=== PATIENT | female | born 1930 | race Caucasian/White ===

== ENCOUNTER 2016-12-27 09:59 | Emergency (ER) | payer OTHER ==
[~2016-12-27] VITALS: Ht 165.1 cm; Wt 74.8 kg
--- NOTE | 2016-12-27 11:14 | ED GI/GU/ABDOMINAL COMPLAINT ---
History of Present Illness General Chief Complaint: Abdominal Pain/Flank Pain Stated Complaint: BLDY STOOL Source: patient Exam Limitations: no limitations Vital Signs & Intake/Output Vital Signs & Intake/Output Vital Signs Date Time Temp Pulse Resp B/P B/P Pulse O2 O2 Flow FiO2 Mean Ox Delivery Rate 12/27 1312 97.1 97 16 147/87 98 Room Air 12/27 1200 98 Room Air 12/27 1007 97.3 78 18 162/90 98 Room Air Allergies Coded Allergies: acetaminophen (From PERCOCET) (UNKNOWN 11/10/15) oxycodone (From PERCOCET) (UNKNOWN 11/10/15) propoxyphene (From DARVOCET-N) (UNKNOWN 11/10/15) Reconcile Medications Amlodipine Besylate 5 MG TABLET 1 TAB PO DAILY HIGH BLOOD PRESSURE (Reported) Atenolol 100 MG TABLET 1.5 TAB PO DAILY HIGH BLOOD PRESSURE (Reported) Atorvastatin Calcium 40 MG TABLET 1 TAB PO DAILY HIGH CHOLESTROL (Reported) Valsartan/Hydrochlorothiazide (Valsartan-Hctz 160-25 MG Tab) 160 MG-25 MG TABLET 0.5 TAB PO DAILY HIGH BLOOD PRESSURE (Reported) Warfarin Sodium (Coumadin) 2.5 MG TABLET 0.5 TAB PO Wednesday BLOOD THINNER (Reported) Warfarin Sodium (Coumadin) 2.5 MG TABLET 1 TAB PO COUMADIN Wed SAT BLOOD THINNER (Reported) Triage Note: PT STATES THAT SHE HAS BEEN ON COUMADING SINCE 2013 AFTER HER PMD THOUGHT SHE HAD A TIA, YESTERDAY HAD 7 EPISODES OF DIARHEA AND THIS AM SHE HAD SOFT BM WITH BRIGHT RED BLLOD, DENIES PAIN Triage Nurses Notes Reviewed? yes ? N Is pt currently ? No HPI: This patient is an 86-year-old female who presented to the emergency department today for evaluation of rectal bleeding. This patient is currently on Coumadin from when she had a suspected TIA in 2013. The patient reported that this week she has felt a little more, "sluggish," than normal, but other than that has felt fine. Yesterday she had approximately 5 episodes of diarrhea in the evening which was watery. She was woken from sleep last night with the urge to move her bowels. She reported that there was bright red blood in the toilet bowl. She has had 2 subsequent episodes of rectal bleeding since that time. She reported that yesterday she was having some mild lower abdominal cramping, but no symptoms today. She denied any fevers, chills, chest pain, difficulty breathing, back pain, nausea, vomiting, urinary burning, urgency, frequency, or blood in the urine. (MONSE STARK PA-C) Past History Travel History Traveled to [place] past 21 day No Medical History Any Pertinent Medical History? see below for history Neurological: TIA EENT: NONE Cardiovascular: hypertension, hyperlipidemia Respiratory: NONE Gastrointestinal: NONE Hepatic: NONE Renal: NONE Musculoskeletal: NONE Psychiatric: NONE Endocrine: NONE Blood Disorders: NONE Cancer(s): NONE GROCERY BUYER/Reproductive: NONE Surgical History Surgical History: non-contributory Psychosocial History What is your primary language Latvian Tobacco Use: Never used ETOH Use: denies use Illicit Drug Use: denies illicit drug use Family History Hx Contributory? No (MONSE STARK PA-C) Review of Systems Review of Systems Constitutional: Reports: see HPI. EENTM: Reports: no symptoms. Respiratory: Reports: no symptoms. Cardiovascular: Reports: no symptoms. GI: Reports: see HPI. Genitourinary: Reports: no symptoms. Musculoskeletal: Reports: no symptoms. Skin: Reports: no symptoms. Neurological/Psychological: Reports: no symptoms. Hematologic/Endocrine: Reports: see HPI. All Other Systems: Reviewed and Negative (MONSE STARK PA-C) Physical Exam Physical Exam Gastrointestinal: normal bowel sounds, soft, non-tender, no organomegaly, NONDISTENDED. nO MASSES APPRECIATED. nO HERNIAS APPRECIATED. tYMPANIC TO PERCUSSION IN ALL 4 QUADRANTS. nO REBOUND OR GUARDING. nO PERITONEAL SIGNS Comments: Well-developed well-nourished person in no acute distress HEENT: Normal EENT exam, head normocephalic/atraumatic, moist mucous membranes Pupils equally round and reactive to light. Neck: Supple, no lymphadenopathy Back: Normal gait. Normal inspection Cardiovascular: Regular rate and rhythm with no murmurs, rubs, or gallops Respiratory: No respiratory distress. Chest nontender. Speaking in full sentences Rectal examination: No external hemorrhoids. No internal hemorrhoids appreciated. Mild amount of bright red blood seen grossly. Heme positive stool guaiac. Extremity: Normal pulses. No edema Neuro: Alert oriented x3, cranial nerves II through XII grossly intact. Skin: No appreciable rash on exposed skin, skin is warm and dry. Psych: Mood and affect is normal Core Measures ACS in differential dx? Yes Severe Sepsis Present: No Septic Shock Present: No (MI MYERS,MONSE) Progress Differential Diagnosis: AAA, AMI, appendicitis, biliary colic, bowel obstruction , colon cancer, cholecystitis, diverticulitis, gastritis, hepatitis, hemorrhoids , ischemic bowel, inflamm bowel dis, perforated viscous, SBO Plan of Care: Orders Procedure Date/time Status PARTIAL THROMBOPLASTIN TIME 12/27 111 Complete PROTHROMBIN TIME 12/27 111 Complete COMPREHENSIVE METABOLIC PANEL 12/27 111 Complete CBC WITHOUT DIFFERENTIAL 12/27 111 Complete TYPE & SCREEN (NOT X-MATCH) 12/27 111 Complete Laboratory Tests 12/27/16 1132: Anion Gap 16, Estimated GFR 59 L, BUN/Creatinine Ratio 26.7 H, Glucose 134 H, Calcium 10.0, Total Bilirubin 1.0, AST 47 H, ALT 58 H, Alkaline Phosphatase 109, Total Protein 7.3, Albumin 4.3, Globulin 3.0, Albumin/Globulin Ratio 1.4, PT 19.1 H, INR 1.83 H, APTT 45 H, CBC w Diff NO MAN DIFF REQ, RBC 5.14, MCV 94.9, MCH 32.1 H, RDW 14.5, MPV 8.8, Gran % 80.1 H, Lymphocytes % 12.8 L, Monocytes % 6.6, Eosinophils % 0.3, Basophils % 0.2, Absolute Granulocytes 8.5 H, Absolute Lymphocytes 1.4, Absolute Monocytes 0.7 H, Absolute Eosinophils 0, Absolute Basophils 0, PUBS MCHC 33.8 Diagnostic Imaging: Viewed by Me: CT Scan. Discussed w/RAD: CT Scan. Radiology Impression: PATIENT: DAHIANA GARCIA PRESENT AGE: 86 PATIENT ACCOUNT NO: [id number] : 29 LOCATION: [facility] ORDERING PHYSICIAN: MONSE STARK PA-C SERVICE DATE: 12/27/16 EXAM TYPE: CAT - CT ABD & PELVIS W IV CONTRAST EXAMINATION: CT ABDOMEN AND PELVIS WITH CONTRAST CLINICAL INFORMATION: Rectal bleeding. COMPARISON: None TECHNIQUE: Multidetector volumetric imaging was performed of the abdomen and pelvis before and after the IV administration of 95 mL of of Optiray 320 intravenous contrast. Sagittal and coronal reformatted images were obtained on the technologist's workstation. DLP: 332 mGy-cm FINDINGS: LUNG BASES: 0.3 cm calcified granuloma in the middle lobe. Mild atelectasis in dependent aspect of each lower lobe. No pericardial or pleural effusion. Cardiomegaly, moderate atherosclerotic calcification of left anterior descending coronary artery and mild atherosclerotic calcification of the right coronary artery. LIVER, GALLBLADDER, AND BILIARY TREE: Liver is normal in size. No suspicious, focal hepatic lesion. There is minimal dilatation of central intrahepatic bile ducts and the common bile duct measures 0.8 cm diameter. Gallbladder is physiologically distended and without radiopaque calculi. No CT imaging evidence of choledocholithiasis. PANCREAS: Diffuse atrophy and fatty replacement of the pancreas. No focal pancreatic lesion or pancreatic ductal dilatation. SPLEEN: Unremarkable. ADRENAL GLANDS: Unremarkable. KIDNEYS AND URETERS: Mild bilateral renal cortical atrophy. No evidence of solid renal mass, nephrolithiasis or hydroureteronephrosis. BLADDER: Unremarkable. GASTROINTESTINAL TRACT: Probable small hiatal hernia. Stomach has normal wall thickness. Bowel is normal in caliber. The appendix is normal. A 2.4 x 2.6 x 4.2 cm opacity within the cecal lumen at the level of the ileocecal valve is surrounded by fecal material. It is uncertain whether this represents a component of the fecal material or whether this represents a pedunculated polyp. Question whether patient has undergone any recent colonoscopy evaluation. The descending colon is underdistended, which likely accounts for its mild wall thickening. There are multiple diverticula of the descending and sigmoid colon without evidence of acute diverticulitis. The rectum is normal and there is no perirectal inflammatory changes. No abdominal ascites. ABDOMINAL WALL: Unremarkable. LYMPH NODES: No pathologic sized lymph nodes within the abdomen or pelvis. VASCULAR: There is atherosclerotic calcification of the aorta and iliac arteries without aneurysm. Inferior vena cava is normal. The splenic, mesenteric and portal veins are patient. PELVIC VISCERA: Status post hysterectomy. No pelvic mass or free fluid. No iliac, obturator or inguinal lymphadenopathy. OSSEOUS STRUCTURES: No acute findings within the degenerated thoracolumbar spine. 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 The L3-L4 degenerative disc disease is associated with minimal right lateral listhesis of L3 on L4. The facet osteoarthritis and disc degeneration of L4-L5 there are associated with 0.4 cm of anterolisthesis of L4 on L5. There is [id number] osteoarthrosis of the hips. No aggressive bone lesions. IMPRESSION: 1. Diverticulosis of the descending and sigmoid colon; however, no convincing findings for acute diverticulitis. 2. Fecal material is present within the colon. The more focal opacity within the cecum at the ileocecal valve could represent part of the fecal contents; however, unable to exclude a pedunculated polyp in this location. If not recently performed, and if bleeding persists, colonoscopy evaluation may be required. 3. No evidence of rectal mass or proctitis. DICTATED BY: JOSIE IVORY MD DATE/TIME DICTATED:12/27/161299 FIRE SAFETY INSPECTOR: JERONIMO DATE/TIME TRANSCRIBED:12/27/161299 CONFIDENTIAL, DO NOT COPY WITHOUT APPROPRIATE AUTHORIZATION. <Electronically signed in Other Vendor System> SIGNED BY: JOSIE IVORY MD 12/27/16 1320 Initial ED EKG: none Comments: 12/27/2016 1:47:49 PM: Discussed this patient with Dr. Turner. He will be down to evaluate this patient at the bedside. Requested calling on-call switchboard clerk to discuss this patient with them as this patient is on Coumadin. 12/27/2016 1:50:19 PM: Dr. Turner is at the patient's bedside for [id number] evaluation. 12/27/2016 2:29:16 PM: I discussed this patient with on-call switchboard clerk, Dr. Mathias. He believes that this patient is stable for outpatient evaluation. He suggested having her hold her Coumadin over the next 2 days and follow-up in the office. (MONSE STARK PA-C) Departure Departure Disposition: HOME OR SELF CARE Condition: Stable Clinical Impression Primary Impression: Rectal bleeding Referrals: STEFAN BARRETT MD (PCP/Family) JONATHAN MATHIAS MD Additional Instructions: Hold your Coumadin over the next 2 days. Please follow-up with your primary care physician. You may call the switchboard clerk's information has been provided to you in this packet for further evaluation. You may need a colonoscopy. Please return to the emergency department for any worsening symptoms or concerns. Departure Forms: Customer Survey General Discharge Information (MONSE STARK PA-C) PA/NIBBLER OPERATOR Co-Sign Statement Statement: ED Attending supervision documentation- [X] I saw and evaluated the patient. I have also reviewed all the pertinent lab results and diagnostic results. I agree with the findings and the plan of care as documented in the PA's/NIBBLER OPERATOR's documentation. [] I have reviewed the ED Record and agree with the PA's/NIBBLER OPERATOR's documentation. [] Additions or exceptions (if any) to the PAs/NIBBLER OPERATOR's note and plan are summarized below: [] (JAZMINE WADDELL,KATIE Waldrop)
[2016-12-27] MEDS ORDERED: AMLODIPINE BESYL5 M1 PO (11:33)
[2016-12-27] MEDS ORDERED: ATENOLOL100 M1 PO (11:33)
[2016-12-27] MEDS ORDERED: ATORVASTATIN CA40 M1 PO (11:34)
[2016-12-27] MEDS ORDERED: COUMADIN2.5 M1 PO ×2 (11:38→11:39)
[2016-12-27 11:40] LABS: ABSOLUTE BASOPHIL COUNT 0 /CUMM (0.0-0.2); ABSOLUTE EOSINOPHIL COUNT 0 /CUMM (0.0-0.7); ABSOLUTE GRANULOCYTE CT 8.5 /CUMM (1.4-6.5); ABSOLUTE LYMPH COUNT 1.4 /CUMM (1.2-3.4); ABSOLUTE MONOCYTE COUNT 0.7 /CUMM (0.10-0.60); BASOPHIL % 0.2 % (0.0-2.0); EOSINOPHIL % 0.3 % (0-5); GRANULOCYTE % 80.1 % (42.2-75.2); HEMATOCRIT 48.8 % (37-47); MEAN CORPUSCULAR HGB 32.1 PG (27.0-31.0); MEAN CORPUSCULAR HGB CONC 33.8 G/DL (33.0-37.0); MEAN CORPUSCULAR VOLUME 94.9 FL (81.0-99.0); MEAN PLATELET VOLUME 8.8 FL (7.4-10.4); PLATELET COUNT 220 /CUMM (130-400); RBC DISTRIBUTION WIDTH 14.5 % (11.5-14.5); RED BLOOD CELL CT 5.14 /CUMM (4.20-5.40); WHITE BLOOD CELL COUNT 10.6 /CUMM (4.8-10.8)
[2016-12-27] MEDS ORDERED: VALSARTAN-HCTZ1 EAC2 PO (11:40)
[2016-12-27 11:49] LABS: PT 19.1 SEC (9.4-12.5); PTT 45 SEC (25-37)
--- NOTE | 2016-12-27 13:20 | CT SCAN REPORT ---
EXAMINATION: CT ABDOMEN AND PELVIS WITH CONTRAST CLINICAL INFORMATION: Rectal bleeding. COMPARISON: None TECHNIQUE: Multidetector volumetric imaging was performed of the abdomen and pelvis before and after the IV administration of 95 mL of of Optiray 320 intravenous contrast. Sagittal and coronal reformatted images were obtained on the technologist's workstation. DLP: 332 mGy-cm FINDINGS: LUNG BASES: 0.3 cm calcified granuloma in the middle lobe. Mild atelectasis in dependent aspect of each lower lobe. No pericardial or pleural effusion. Cardiomegaly, moderate atherosclerotic calcification of left anterior descending coronary artery and mild atherosclerotic calcification of the right coronary artery. LIVER, GALLBLADDER, AND BILIARY TREE: Liver is normal in size. No suspicious, focal hepatic lesion. There is minimal dilatation of central intrahepatic bile ducts and the common bile duct measures 0.8 cm diameter. Gallbladder is physiologically distended and without radiopaque calculi. No CT imaging evidence of choledocholithiasis. PANCREAS: Diffuse atrophy and fatty replacement of the pancreas. No focal pancreatic lesion or pancreatic ductal dilatation. SPLEEN: Unremarkable. ADRENAL GLANDS: Unremarkable. KIDNEYS AND URETERS: Mild bilateral renal cortical atrophy. No evidence of solid renal mass, nephrolithiasis or hydroureteronephrosis. BLADDER: Unremarkable. GASTROINTESTINAL TRACT: Probable small hiatal hernia. Stomach has normal wall thickness. Bowel is normal in caliber. The appendix is normal. A 2.4 x 2.6 x 4.2 cm opacity within the cecal lumen at the level of the ileocecal valve is surrounded by fecal material. It is uncertain whether this represents a component of the fecal material or whether this represents a pedunculated polyp. Question whether patient has undergone any recent colonoscopy evaluation. The descending colon is underdistended, which likely accounts for its mild wall thickening. There are multiple diverticula of the descending and sigmoid colon without evidence of acute diverticulitis. The rectum is normal and there is no perirectal inflammatory changes. No abdominal ascites. ABDOMINAL WALL: Unremarkable. LYMPH NODES: No pathologic sized lymph nodes within the abdomen or pelvis. VASCULAR: There is atherosclerotic calcification of the aorta and iliac arteries without aneurysm. Inferior vena cava is normal. The splenic, mesenteric and portal veins are patient. PELVIC VISCERA: Status post hysterectomy. No pelvic mass or free fluid. No iliac, obturator or inguinal lymphadenopathy. OSSEOUS STRUCTURES: No acute findings within the degenerated thoracolumbar spine. 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 The L3-L4 degenerative disc disease is associated with minimal right lateral listhesis of L3 on L4. The facet osteoarthritis and disc degeneration of L4-L5 there are associated with 0.4 cm of anterolisthesis of L4 on L5. There is gxso-xl-aszlwtwk osteoarthrosis of the hips. No aggressive bone lesions. IMPRESSION: 1. Diverticulosis of the descending and sigmoid colon; however, no convincing findings for acute diverticulitis. 2. Fecal material is present within the colon. The more focal opacity within the cecum at the ileocecal valve could represent part of the fecal contents; however, unable to exclude a pedunculated polyp in this location. If not recently performed, and if bleeding persists, colonoscopy evaluation may be required. 3. No evidence of rectal mass or proctitis.
[2016-12-27 14:47] VITALS: BP 140/76
== END 2016-12-27 14:50 ==
LOC: ERH 09:59
PROVIDERS: Physician Assistant
DX: K62.5 Hemorrhage of anus and rectum (principal); R19.7 Diarrhea, unspecified; I10 Essential (primary) hypertension
CPT/HCPCS: 74177